=== PATIENT | female | born 1990 | race Caucasian/White ===

== ENCOUNTER 2020-06-13 09:27 | Emergency (ER) | payer OTHER, SELFPAY ==
--- NOTE | ~2020-06-13 | CT_ITS ---
EXAMINATION: CT HEAD WITHOUT CONTRAST CLINICAL INFORMATION: Left-sided numbness for 3 days COMPARISON: None TECHNIQUE: Contiguous axial imaging was performed from the skull base to vertex without intravenous administration of contrast. This CT examination was performed using dose optimization techniques as appropriate, variously including the following: *Automated exposure control *Adjustment of mA and/or kV according to patient size (this includes techniques or standardized protocols for targeted exams where dose is matched to indication/reason for exam; i.e. extremities or head) *Use of iterative reconstruction technique DLP: 622 mGy-cm FINDINGS: There is no evidence of acute intracranial hemorrhage or territorial infarction. No abnormal mass effect or midline shift is seen. Larson to white matter differentiation is well preserved. No extra-axial fluid collections are identified. The ventricles are normal in size. There is no abnormal attenuation within the brain parenchyma. The osseous structures and soft tissues are normal. The mastoid air cells and visualized portions of the paranasal sinuses are well aerated. CT/CT head/brain wo con IMPRESSION: No acute intracranial pathology.
[2020-06-13 09:54] VITALS: BP 151/98; PULSE 82; RESP 18; TEMP 37; O2SAT 99; BMI 51.2
--- NOTE | 2020-06-13 10:25 | ECG_ITS ---
Test Reason : WEAKNESS Blood Pressure : / mmHG Vent. Rate : 081 BPM Atrial Rate : 081 BPM P-R Int : 164 ms QRS Dur : 092 ms QT Int : 396 ms P-R-T Axes : 023 027 018 degrees QTc Int : 460 ms Normal sinus rhythm Possible Left atrial enlargement Cannot rule out Anterior infarct , age undetermined Abnormal ECG When compared with ECG of 15-NOV-2019 22:34, Nonspecific T wave abnormality now evident in Anterior leads Referred By: Miguel Hicks Electronically Signed By:CHINEDU LONGORIA MD
--- NOTE | 2020-06-13 10:26 | ED_ITS ---
HPI - General Adult General Chief complaint: Weakness Stated complaint: LEFT SIDED NUMBNESS Time Seen by Provider: 06/13/20 10:02 Source: patient Mode of arrival: ambulatory Limitations: no limitations History of Present Illness HPI narrative: 31-year-old female who presents emergency department for evaluation of left-sided numbness x3 days. The patient states that she does have migraine headaches. She states that however 6 days prior she did have headache but took Tylenol and ibuprofen and this resolved. Three days prior to coming to the emergency department she had gradual onset of numbness and tingling on the left side of her body. She states that the symptoms involve her face left arm and left leg. She states that the symptoms seem to wax and wane in intensity with different body parts being more intense at different times. She denied any weakness or pain in the areas of numbness. She denied headache, nausea, vomiting, shortness of breath, dyspnea on exertion abdominal pain. She denied change in her vision. She denied fatigue. She states she has been getting intermittent, mild, tightness and her left shoulder area. Patient states that she has had similar numbness the past but has never been this persisted. The patient does have a history of hypertension. She states that she ran out of her hydrochlorothiazide 25 mg once a day, 1/2 weeks prior and can ocular refill until she is seen by your PCP. Related Data Previous Rx's Medication Instructions Recorded hydrochlorothiazide 25 mg PO DAILY #30 tab 06/13/20 Allergies Allergy/AdvReac Type Severity Reaction Status Date / Time shellfish derived Allergy Severe THROAT Verified 06/13/20 11:01 [SHELLFISH DERIVED] SWELLING NUMBNESS amoxicillin [From AUGMENTIN] Allergy Intermediate CDIFF Verified 06/13/20 11:01 clavulanic acid Allergy Intermediate CDIFF Verified 06/13/20 11:01 [From AUGMENTIN] Review of Systems Review of Systems: Yes all other systems are reviewed and are negative Neurologic: Reports Abnormal speech present [facility] Past Medical History [facility] Narrative: Patient has a history of hypertension, GERD and migraines. The patient denies tobacco use, she states she occasionally drinks alcohol socially. She states that she occasionally smokes marijuana. She denies any other drug use. Medical History HTN (hypertension) Social History Social History Advance Directives: No Advance Directives Information Provided: Yes Physical Exam Vital Signs: Vital Signs: Last Vital Signs Temp 98.6 F 06/13/20 09:54 Pulse 85 06/13/20 11:13 Resp 18 06/13/20 09:54 BP 151/99 H 06/13/20 11:13 Pulse Ox 99 06/13/20 09:54 Body Mass Index 51.2 Const: General: cooperative Nutritional Appearance: overweight Orientation/consciousness: oriented to person and oriented to place Limitations: no limitations HENMT: Head: Yes normal to inspection, Yes normocephalic and Yes atraumatic Ears: external ears normal General nose exam: Normal external nose present Face and sinus: Yes normal facial exam Mouth: Normal oral and palatal mucosa present Throat: Yes posterior oropharynx normal Eyes: Periorbital: periorbital findings normal Eyelids: Yes eyelids normal Conjunctivae: conjunctivae normal Sclerae: sclerae normal Corneas: corneas normal Pupils: Equal, round and reactive pupils present Direct Ophthalmoscopy: normal light reflex Neck: Neck: Yes full ROM, Yes no lymphadenopathy, Yes no meningeal signs, Yes trachea midline and Yes supple Chest: Chest palpation & inspection: normal inspection of the chest and normal palpation of entire chest wall Resp: Effort & Inspection: normal respiratory effort and able to speak in complete sentences Auscultation: clear to auscultation bilaterally Cardio: Rate: regular rate Rhythm: regular rhythm Heart sounds: S1 normal heart sound present, S2 normal heart sound present and no murmurs GI: Inspection: Yes normal to inspection Palpation (GI): Soft to palpation, nontender, no guarding, not rigid and No hepatosplenomegaly present : General: Yes no CVA tenderness Back/Spine/Pelvis: Back: no CVA tenderness Cervical Spine: normal cervical lordosis Thoracic/Lumbar Spine: thoracic and lumbar spine normal to inspection Skin: Lesions: no lesions Rashes: no rashes Wounds: no wounds Neuro: General: oriented to person, oriented to place and no meningeal signs Cranial nerves: Yes CN's II-XII intact bilaterally and Yes Equal, round and reactive pupils present Cognition (Neuro): normal cognition Speech: Abnormal speech present Motor exam (neuro): 5/5 motor strength present t hroughout Sensory Exam: other (Slight diminished light touch in the L lower extremity compared to the R) Extrem: General: Yes normal to inspection and Yes full ROM Psych: Appearance: well kempt Mental Status: mental status grossly normal Speech and movement: Normal speech and movement present Affect: normal affect Attitude: cooperative Thought process: Normal thought process pres ent Thought content: Normal thought content present Course Course Course Narrative: 30-year-old female with history of hypertension, migraine headaches, GERD who presents emergency department for evaluation 3 days of left- sided numbness. The numbness was proceeded by her usual migraine headaches. The patient's physical examination did reveal some diminished light touch in the left lower extremity as compared to the right otherwise her exam was unremarkable. Differential includes but not limited to stroke, MS, migraine syndrome, anxiety, metabolic abnormalities. I did order laboratory evaluation and CT scan of patient's head. I will treat the patient as if this is a migr lianna syndrome with Toradol 30 mg IV, Reglan 10 mg IV and Benadryl 50 mg IV. I also ordered normal saline IV x1 L. 1250: The patient states that her numbness has improved slightly but has not resolved completely. She states she is feeling better and would like to go home. The patient's laboratory evaluation was unremarkable. CT scan without IV contrast was unremarkable as well. I did tell the patient that I suspect that her numbness is part of her migraine syndrome however it persists that she should follow-up with neurology for further evaluation. Medical Decision Making Lab Data Result diagrams: 06/13/20 10:46 06/13/20 10:46 Labs: Lab Results 06/13/20 06/13/20 06/13/20 Range/Units 10:46 10:46 10:47 WBC 8.5 (4.8-10.8) X10*3/uL RBC 4.97 (4.20-5.50) X10*6/uL Hgb 13.8 (12.0-16.0) g/dl Hct 42.8 (37-47) % MCV 86.1 (80-98) fL MCH 27.8 (27.0-33.0) pg MCHC 32.2 (31.0-35.0) g/dl RDW 13.1 (11.0-16.0) % Plt Count 308 (160-400) X10*3/uL MPV 10.7 (9.4-12.3) fL Immature Gran % (Auto) 0.2 (0.0-0.4) % Neut % (Auto) 56.8 (45-73) % Lymph % (Auto) 35.3 (20-40) % Otoe % (Auto) 5.9 (2-11) % Eos % (Auto) 1.1 (0-4) % Baso % (Auto) 0.7 (0-2) % Lymph # (Auto) 3.0 (1.2-4.9) X10*3/uL Otoe # (Auto) 0.5 (0.1-1.2) X10*3/uL Eos # (Auto) 0.1 (0.0-0.4) X10*3/uL Baso # (Auto) 0.1 (0.0-0.2) X10*3/uL Abs Immat Gran (auto) 0.02 (0.00-0.03) X10*3/uL Absolute Neuts (auto) 4.8 (2.0-8.3) X10*3/uL Absolute Nucleated RBC 0.000 (0.0-0.012) X10*3/uL Nucleated RBC % (auto) 0.0 (0.0-0.2) /100WBC Sodium 137 (135-145) mmol/L Potassium 4.1 (3.3-5.1) mmol/L Chloride 103 (96-108) mmol/L Carbon Dioxide 25 (22-29) mmol/L Anion Gap 13 (12-20) BUN 9 (9-16) mg/dL Creatinine 0.81 (0.5-1.4) mg/dL Estim Creat Clear Calc 109.6 Estimated GFR > 60 Random Glucose 89 (60-115) mg/dL Calcium 8.9 (8.4-10.2) mg/dL Total Bilirubin 0.6 (0.0-1.0) mg/dL AST 20 (5-31) U/L ALT 21 (0-31) U/L Alkaline Phosphatase 128 H (39-117) U/L Total Protein 7.4 (6.5-8.0) g/dL Albumin 3.8 (3.5-5.0) g/dL Lipase 27 (8-78) U/L Urine Test NEGATIVE (NEGATIVE) ECG Data Attestation: I personally reviewed and interpreted this ECG as follows: Interpretation: 1040: Normal sinus rhythm with rate of 81, normal NV, QRS and QTC intervals, inverted T-wave in lead 3 and V1, no ST segment elevation, no ST segment depression, this is a normal EKG. Discharge Plan Discharge Clinical Impression: Numbness and tingling Patient Disposition: Home, Self-Care Instructions: Paresthesia (ED) Additional Instructions: Your blood work was unremarkable. Your EKG was normal. This CT scan of your head without IV contrast revealed no evidence of a stroke at this time which is reassuring. I suspect that your symptoms are related to her migraine syndrome. If your symptoms get worse or do not improve then you should follow-up with our neurologist for re-evaluation. Restart your hydrochlorothiazide today and follow-up with your doctor for re- evaluation further treatment of your hypertension/high blood pressure Prescriptions: New hydrochlorothiazide 25 mg tablet 25 mg PO DAILY Qty: 30 RF: 0 Referrals: Law Freeman MD [Physician] - 1 week (Left-sided numbness and tingling, history of migraine, CT negative, labs normal)
[2020-06-13] MEDS: Metoclopramide HCl 10 MG/2 ML VIAL IVPUSH (11:01)
[2020-06-13] MEDS: diphenhydrAMINE HCL 50 MG/ML VIAL IVPUSH (11:01)
[2020-06-13 11:02] LABS: Urine Pregnancy NEGATIVE (NEGATIVE)
[2020-06-13] MEDS: Ketorolac Tromethamine 30 MG/ML VIAL IVPUSH (11:02)
[2020-06-13 11:03] LABS: UPreg QC Valid YES
[2020-06-13 11:03] LABS: Basophils Absolute Auto 0.1 X10*3/uL (0.0-0.2); Basophils Percent Auto 0.7 % (0-2); Eosinophils Absolute Auto 0.1 X10*3/uL (0.0-0.4); Eosinophils Percent Auto 1.1 % (0-4); Hematocrit 42.8 % (37-47); Hemoglobin 13.8 g/dl (12.0-16.0); Imm Gran Abs Auto 0.02 X10*3/uL (0.00-0.03); Imm Gran Pct Auto 0.2 % (0.0-0.4); Lymphocytes Percent Auto 35.3 % (20-40); Mean Corpuscular HGB Conc 32.2 g/dl (31.0-35.0); Mean Corpuscular Hemoglobin 27.8 pg (27.0-33.0); Mean Corpuscular Volume 86.1 fL (80-98); Mean Platelet Volume 10.7 fL (9.4-12.3); Monocytes Absolute Auto 0.5 X10*3/uL (0.1-1.2); Monocytes Percent Auto 5.9 % (2-11); Neutrophils Absolute Auto 4.8 X10*3/uL (2.0-8.3); Neutrophils Percent Auto 56.8 % (45-73); Platelet Count 308 X10*3/uL (160-400); Red Blood Count 4.97 X10*6/uL (4.20-5.50); Red Cell Distribution Width 13.1 % (11.0-16.0); White Blood Count 8.5 X10*3/uL (4.8-10.8)
[2020-06-13] MEDS: 0.9 % Sodium Chloride 1,000 ML 999 ML IV (11:03)
[2020-06-13 11:13] VITALS: BP 151/99; PULSE 85
--- NOTE | 2020-06-13 11:17 | PC.NURSE ---
Pt felt dizzy after benedryl admin. BP and HR assessed with no changes. Pt placed on monitor. Dizziness is subsuding.
[2020-06-13 11:39] LABS: Alanine Aminotransferase 21 U/L (0-31); Albumin Level 3.8 g/dL (3.5-5.0); Alkaline Phosphatase 128 U/L (39-117); Anion Gap 13 (12-20); Aspartate Amino Transferase 20 U/L (5-31); Bilirubin Total 0.6 mg/dL (0.0-1.0); Blood Urea Nitrogen 9 mg/dL (9-16); Calcium 8.9 mg/dL (8.4-10.2); Carbon Dioxide 25 mmol/L (22-29); Chloride 103 mmol/L (96-108); Creatinine Clr Calc Pharmacy 109.6; Estimated Glomerular Filt Rate > 60; Glucose Random 89 mg/dL (60-115); Lipase 27 U/L (8-78); Potassium 4.1 mmol/L (3.3-5.1); Sodium 137 mmol/L (135-145); Total Protein 7.4 g/dL (6.5-8.0)
== END 2020-06-13 13:09 | disposition home or self-care (01) ==
PROVIDERS: Emergency Provider Emergency Medicine Emergency Medical Services; PCP Internal Medicine
DX: G43.909 Migraine, unspecified, not intractable, without status migrainosus (principal); R20.0 Anesthesia of skin; Z79.899 Other long term (current) drug therapy
CPT/HCPCS: 36415; 70450; 80053; 81025; 83690; 85025; 93005; 96361; 96374; 96375; 99283; 99284; J1200; J1885; J2765

== ENCOUNTER 2020-09-09 11:53 | Emergency (ER) | payer OTHER, SELFPAY ==
--- NOTE | ~2020-09-09 | CT_ITS ---
EXAMINATION: CT HEAD WITHOUT CONTRAST CLINICAL INFORMATION: Dizziness. COMPARISON: None TECHNIQUE: Contiguous axial imaging was performed from the skull base to vertex without intravenous administration of contrast. This CT examination was performed using dose optimization techniques as appropriate, variously including the following: *Automated exposure control *Adjustment of mA and/or kV according to patient size (this includes techniques or standardized protocols for targeted exams where dose is matched to indication/reason for exam; i.e. extremities or head) *Use of iterative reconstruction technique DLP: 625 mGy-cm FINDINGS: There is no evidence of acute intracranial hemorrhage or territorial infarction. No abnormal mass effect or midline shift is seen. Larson to white matter differentiation is well preserved. No extra-axial fluid collections are identified. The ventricles are normal in size. There is no abnormal attenuation within the brain parenchyma. The osseous structures and soft tissues are normal. The mastoid air cells and visualized portions of the paranasal sinuses are well aerated. CT/CT head/brain wo con IMPRESSION: No acute intracranial process seen.
--- NOTE | ~2020-09-09 | XR_ITS ---
EXAMINATION: XR CHEST CLINICAL INFORMATION: Pneumonia COMPARISON: None TECHNIQUE: Frontal view of the chest was obtained. FINDINGS: No significant abnormality is noted involving the heart, lungs, mediastinum, bony thorax or soft tissues. XR/XR chest 1V IMPRESSION: Unremarkable examination.
[2020-09-09 12:05] VITALS: BP 156/114; PULSE 78; RESP 20; TEMP 36.4; O2SAT 99; BMI 52.2
--- NOTE | 2020-09-09 12:35 | ECG_ITS ---
Test Reason : ARRHYTHRMIA Blood Pressure : / mmHG Vent. Rate : 065 BPM Atrial Rate : 065 BPM P-R Int : 166 ms QRS Dur : 096 ms QT Int : 424 ms P-R-T Axes : 018 019 007 degrees QTc Int : 440 ms Normal sinus rhythm Normal ECG When compared with ECG of 13-JUN-2020 10:40, No significant change was found Referred By: Day Maria Electronically Signed By:CHINEDU LONGORIA MD
--- NOTE | 2020-09-09 13:36 | ED_ITS ---
HPI - General Adult General Chief complaint: Arrhythmia/Palpitations Stated complaint: dizziness, reaction to med? Time Seen by Provider: 09/09/20 12:34 Source: patient Mode of arrival: ambulatory Limitations: no limitations History of Present Illness HPI narrative: Patient presents to the ED of dizziness described as the room spinning and also having palpitations. Patient states dizziness when changing position of head and nausea. Patient states symptoms may be attributed to new medication losartan she took for the 1st time last night. Patient denies any head trauma, chest pain, shortness of breath. Patient states no fever or chills. Patient denies any headache or neck stiffness Related Data Home Medications Medication Instructions Recorded Confirmed amlodipine 2.5 mg tablet 2.5 mg PO DAILY 09/03/20 09/03/20 cetirizine 10 mg capsule 10 mg PO DAILY PRN 09/03/20 09/03/20 epinephrine 0.3 mg/0.3 mL 1 IM DIRECTED 09/03/20 09/03/20 injection, auto-injector ergocalciferol (vitamin D2) 1,250 1,250 mcg PO QWEEK 09/03/20 09/03/20 mcg (50,000 unit) capsule sumatriptan succinate 100 mg tablet mg PO 09/03/20 09/03/20 Previous Rx's Medication Instructions Recorded hydrochlorothiazide 25 mg PO DAILY #30 tab 06/13/20 azithromycin 500 mg tablet 500 mg PO DAILY 5 Days #5 tab 09/03/20 prednisone 50 mg tablet 50 mg PO DAILY 5 Days #5 tab 09/03/20 meclizine 25 mg PO TID PRN #30 tab 09/09/20 Allergies Allergy/AdvReac Type Severity Reaction Status Date / Time shellfish derived Allergy Severe THROAT Verified 09/03/20 16:14 [SHELLFISH DERIVED] SWELLING NUMBNESS amoxicillin [From AUGMENTIN] Allergy Intermediate CDIFF Verified 09/03/20 16:14 clavulanic acid Allergy Intermediate CDIFF Verified 09/03/20 16:14 [From AUGMENTIN] Review of Systems Review of Systems: Yes all other systems are reviewed and are negative Constitutional: Constitutional: Reports as per HPI and Reports no additional constitutional complaints Eyes: Eyes: Reports as per HPI and Reports no additional eye complaints ENT: Reports system reviewed and no additional complaints, except as documented, Reports as per HPI, Reports vertigo and Reports dizziness Cardiovascular: Cardiovascular: Reports as per HPI and Reports no additional cardiovascular complaints Comments: Palpitation Respiratory: Respiratory: Reports as per HPI and Reports no additional respiratory complaints Gastrointestinal: Gastrointestinal: Reports as per HPI and Reports no additional gastrointestinal complaints Musculoskeletal: Musculoskeletal: Reports no additional musculoskeletal complaints and Reports as per HPI Neurologic: Reports system reviewed and no additional complaints, except as documented, Reports as per HPI, Reports vertigo and Reports dizziness PMFSH Past Medical History Medical History HTN (hypertension) Social History Social History Smoking Status: Former smoker Use of substances other than those prescribed or required for medical reasons: No Advance Directives: No Advance Directives Information Provided: No Patient : No Physical Exam Vital Signs: Vital Signs: Last Vital Signs Temp 97.6 F 09/09/20 12:05 Pulse 91 09/09/20 16:19 Resp 14 09/09/20 15:11 BP 154/95 H 09/09/20 16:19 Pulse Ox 100 09/09/20 15:11 Body Mass Index 52.2 Const: General: cooperative, healthy appearing, comfortable, no acute distress, well developed, alert, awake and Physically active Orientation/consciousness: patient oriented x3 HENMT: Head: Yes normal to inspection, Yes No palpable skull fracture present, Yes normocephalic, Yes atraumatic and No abrasion Eyes: Other: Positive for horizontal nystagmus to the left and says she is feeling of dizziness. General: appearance normal, both eyes and all related structures Neck: Neck: Yes normal visual inspection, Yes full ROM, Yes no lymphade nopathy, Yes no meningeal signs, Yes trachea midline, Yes supple and No tender Chest: Chest palpation & inspection: normal inspection of the chest and normal palpation of entire chest wall Resp: Effort & Inspection: normal respiratory effort and able to speak in complete sentences Auscultation: clear to auscultation bilaterally Cardio: Jugular venous distension: no JVD Heart sounds: S1 normal heart sound present and S2 normal heart sound present GI: Inspection: Yes normal to inspection Palpation (GI): Soft to palpation, not firm, nontender, no guarding and not rigid : General: No CVA tenderness and Yes no CVA tenderness Back/Spine/Pelvis: Back: no CVA tenderness, No CVA tenderness and No back tenderness Skin: General skin exam: no rashes or lesions noted and elasticity normal Neuro: Other: Negative slurred speech. Negative facial droop. All ex tremities strength intact in 5+. Negative pronator drif. negative rhomberg. finger to nose and rapid hand movement is intact. General: patient oriented x3, gait normal, no meningeal signs and CN's II-XI intact bilaterally Cranial nerves: Yes CN's II-XII intact bilaterally Extrem: General: Yes normal to inspection and Yes full ROM Psych: Appearance: grossly normal, well kempt and not disheveled Course Course Course Narrative: Sound like benign positional vertigo but due to palpitation will do basic labs including D-dimer, troponin, TSH, and EKG. Will send patient for head CT Reevaluation(s) Reevaluation #1: Patient's orthostatics negative. Patient's EKG negative STEMI. Troponins negative. D-dimer negative. Negative for . Chest x-ray negative for pneumonia. Patient's TSH level came back normal. Awaiting for head CT scan results. Patient states she feel better. Patient able to ambulate to the bathroom on her own without falling. Patient has steady gait. Orthos tatics are normal. Reevaluation #2: Patient head CT scan came back normal. A re-evaluated patient and she states she feels better. Once again patient states she only feel dizzy on change of position of head which most likely indicate vertigo. I evaluated patient's both ears and they were negative for otitis media/externa/tympanic perforation. Up to date states Losartan can cause dizziness and palpitations. Patient informed to call her PCP in regards to accessing if she should stop taking losartan and. I believe symptoms are due to vertigo due to patient stating sensation of dizziness when room spinning and horizontal nystagmus on evaluation. Medical Decision Making MDM Narrative Medical decision making narrative: Vertical Lab Data Result diagrams: 09/09/20 13:47 09/09/20 14:37 Labs: Lab Results 09/09/20 09/09/20 09/09/20 Range/Units 13:47 13:47 13:47 WBC 15.6 H (4.8-10.8) X10*3/uL RBC 5.06 (4.20-5.50) X10*6/uL Hgb 14.3 (12.0-16.0) g/dl Hct 43.1 (37-47) % MCV 85.2 (80-98) fL MCH 28.3 (27.0-33.0) pg MCHC 33.2 (31.0-35.0) g/dl RDW 13.8 (11.0-16.0) % Plt Count 361 (160-400) X10*3/uL MPV 10.8 (9.4-12.3) fL Immature Gran % (Auto) 0.9 H (0.0-0.4) % Neut % (Auto) 54.6 (45-73) % Lymph % (Auto) 37.6 (20-40) % [place] % (Auto) 5.4 (2-11) % Eos % (Auto) 0.9 (0-4) % Baso % (Auto) 0.6 (0-2) % Lymph # (Auto) 5.9 H (1.2-4.9) X10*3/uL [place] # (Auto) 0.8 (0.1-1.2) X10*3/uL Eos # (Auto) 0.1 (0.0-0.4) X10*3/uL Baso # (Auto) 0.1 (0.0-0.2) X10*3/uL Abs Immat Gran (auto) 0.14 H (0.00-0.03) X10*3/uL Absolute Neuts (auto) 8.5 H (2.0-8.3) X10*3/uL Absolute Nucleated RBC 0.000 (0.0-0.012) X10*3/uL Nucleated RBC % (auto) 0.0 (0.0-0.2) /100WBC Smear Tech's Comments VERIFIED PT (10.8-13.0) SEC INR (0.9-1.1) APTT (24.1-38.0) SEC D-Dimer NG/ML Hold Blue Top SEE NOTE Sodium (135-145) mmol/L Potassium (3.3-5.1) mmol/L Chloride (96-108) mmol/L Carbon Dioxide (22-29) mmol/L Anion Gap (12-20) BUN (9-16) mg/dL Creatinine (0.5-1.4) mg/dL Estim Creat Clear Calc Estimated GFR Random Glucose (60-115) mg/dL Calcium (8.4-10.2) mg/dL Magnesium (1.6-2.6) mg/dL Total Bilirubin Cancelled Direct Bilirubin Cancelled AST Cancelled ALT Cancelled Alkaline Phosphatase Cancelled Troponin I High Sens (<3.5-17.0) ng/L Total Protein Cancelled Albumin Cancelled TSH (0.32-4.0) uIU/mL Beta HCG, Quant mIU/mL Urine Color Urine Appearance Urine pH (5.0-8.0) Ur Specific Central (1.005-1.025) Urine Protein (NEG-TRACE) MG/DL Urine Glucose (UA) (NEG) MG/DL Urine Ketones (NEG) MG/DL Urine Blood (NEG) Urine Nitrite (NEG) Ur Leukocyte Esterase (NEG) Urine RBC (0) /HPF Urine WBC (0-4) /HPF Ur Squamous Epith Cells /LPF Urine Bacteria /LPF Urine Test (NEGATIVE) 09/09/20 09/09/20 09/09/20 Range/Units 13:47 13:47 14:37 WBC (4.8-10.8) X10*3/uL RBC (4.20-5.50) X10*6/uL Hgb (12.0-16.0) g/dl Hct (37-47) % MCV (80-98) fL MCH (27.0-33.0) pg MCHC (31.0-35.0) g/dl RDW (11.0-16.0) % Plt Count (160-400) X10*3/uL MPV (9.4-12.3) fL Immature Gran % (Auto) (0.0-0.4) % Neut % (Auto) (45-73) % Lymph % (Auto) (20-40) % [place] % (Auto) (2-11) % Eos % (Auto) (0-4) % Baso % (Auto) (0-2) % Lymph # (Auto) (1.2-4.9) X10*3/uL [place] # (Auto) (0.1-1.2) X10*3/uL Eos # (Auto) (0.0-0.4) X10*3/uL Baso # (Auto) (0.0-0.2) X10*3/uL Abs Immat Gran (auto) (0.00-0.03) X10*3/uL Absolute Neuts (auto) (2.0-8.3) X10*3/uL Absolute Nucleated RBC (0.0-0.012) X10*3/uL Nucleated RBC % (auto) (0.0-0.2) /100WBC Smear Tech's Comments PT 12.0 (10.8-13.0) SEC INR 1.0 (0.9-1.1) APTT 31.0 (24.1-38.0) SEC D-Dimer < 200 NG/ML Hold Blue Top Sodium 136 (135-145) mmol/L Potassium 3.0 L D (3.3-5.1) mmol/L Chloride 100 (96-108) mmol/L Carbon Dioxide 29 (22-29) mmol/L Anion Gap 10 L (12-20) BUN 15 D (9-16) mg/dL Creatinine 0.81 (0.5-1.4) mg/dL Estim Creat Clear Calc 111.0 Estimated GFR > 60 Random Glucose 85 (60-115) mg/dL Calcium 8.8 (8.4-10.2) mg/dL Magnesium 2.3 (1.6-2.6) mg/dL Total Bilirubin 0.6 Direct Bilirubin 0.3 AST 15 ALT 17 Alkaline Phosphatase 113 Troponin I High Sens < 3.5 (<3.5-17.0) ng/L Total Protein 7.0 Albumin 3.7 TSH 2.54 (0.32-4.0) uIU/mL Beta HCG, Quant < 2 mIU/mL Urine Color Urine Appearance Urine pH (5.0-8.0) Ur Specific Central (1.005-1.025) Urine Protein (NEG-TRACE) MG/DL Urine Glucose (UA) (NEG) MG/DL Urine Ketones (NEG) MG/DL Urine Blood (NEG) Urine Nitrite (NEG) Ur Leukocyte Esterase (NEG) Urine RBC (0) /HPF Urine WBC (0-4) /HPF Ur Squamous Epith Cells /LPF Urine Bacteria /LPF Urine Test (NEGATIVE) 05/13/21 05/13/21 Range/Units 15:12 15:12 WBC (4.8-10.8) X10*3/uL RBC (4.20-5.50) X10*6/uL Hgb (12.0-16.0) g/dl Hct (37-47) % MCV (80-98) fL MCH (27.0-33.0) pg MCHC (31.0-35.0) g/dl RDW (11.0-16.0) % Plt Count (160-400) X10*3/uL MPV (9.4-12.3) fL Immature Gran % (Auto) (0.0-0.4) % Neut % (Auto) (45-73) % Lymph % (Auto) (20-40) % [place] % (Auto) (2-11) % Eos % (Auto) (0-4) % Baso % (Auto) (0-2) % Lymph # (Auto) (1.2-4.9) X10*3/uL [place] # (Auto) (0.1-1.2) X10*3/uL Eos # (Auto) (0.0-0.4) X10*3/uL Baso # (Auto) (0.0-0.2) X10*3/uL Abs Immat Gran (auto) (0.00-0.03) X10*3/uL Absolute Neuts (auto) (2.0-8.3) X10*3/uL Absolute Nucleated RBC (0.0-0.012) X10*3/uL Nucleated RBC % (auto) (0.0-0.2) /100WBC Smear Tech's Comments PT (10.8-13.0) SEC INR (0.9-1.1) APTT (24.1-38.0) SEC D-Dimer NG/ML Hold Blue Top Sodium (135-145) mmol/L Potassium (3.3-5.1) mmol/L Chloride (96-108) mmol/L Carbon Dioxide (22-29) mmol/L Anion Gap (12-20) BUN (9-16) mg/dL Creatinine (0.5-1.4) mg/dL Estim Creat Clear Calc Estimated GFR Random Glucose (60-115) mg/dL Calcium (8.4-10.2) mg/dL Magnesium (1.6-2.6) mg/dL Total Bilirubin Direct Bilirubin AST ALT Alkaline Phosphatase Troponin I High Sens (<3.5-17.0) ng/L Total Protein Albumin TSH (0.32-4.0) uIU/mL Beta HCG, Quant mIU/mL Urine Color YELLOW Urine Appearance CLEAR Urine pH 7.0 (5.0-8.0) Ur Specific Central 1.015 (1.005-1.025) Urine Protein NEG (NEG-TRACE) MG/DL Urine Glucose (UA) NEG (NEG) MG/DL Urine Ketones NEG (NEG) MG/DL Urine Blood TRACE (NEG) Urine Nitrite NEG (NEG) Ur Leukocyte Esterase NEG (NEG) Urine RBC 0-2 (0) /HPF Urine WBC 0-2 (0-4) /HPF Ur Squamous Epith Cells TRACE /LPF Urine Bacteria TRACE /LPF Urine Test NEGATIVE (NEGATIVE) ECG Data Interpretation: Normal sinus rhythm. Normal EKG. Ventricular rate 65. Pr interval 166. QRS duration 96. QTC 440. Negative STEMI Discharge Plan Discharge Clinical Impression: Vertigo, Palpitations Patient Disposition: Home, Self-Care Instructions: Heart Palpitations (ED), Vertigo (ED) Additional Instructions: Return to the ED immediately for any headache, slurred speech, loss of vision, paralysis of extremities, nausea, vomiting, inability to walk, worsening dizziness, or any other concerning symptoms. Inform your PCP tomorrow in regards to the losartan ( new medication) possibly causing symptoms of pa lpitation and dizziness as this was your compliant, but history physical exam indicates more vertigo. EKG came back normal. Head CT scan came back negative for any stroke or bleed. He had elevated white blood cell count, but chest x- ray and UA came back negative for signs of infection. Prescriptions: New meclizine 25 mg tablet 25 mg PO TID PRN (Reason: dizziness) Qty: 30 RF: 0 No Action hydrochlorothiazide 25 mg tablet 25 mg PO DAILY Qty: 30 RF: 0 amlodipine 2.5 mg tablet 2.5 mg PO DAILY RF: 0 sumatriptan succinate 100 mg tablet PO RF: 0 Zyrtec 10 mg capsule 10 mg PO DAILY PRNRF: 0 ergocalciferol (vitamin D2) 1,250 mcg (50,000 unit) capsule 1,250 mcg PO QWEEK RF: 0 epinephrine 0.3 mg/0.3 mL auto-injector 1 IM DIRECTED RF: 0 azithromycin 500 mg tablet 500 mg PO DAILY 5 Days Qty: 5 RF: 0 prednisone 50 mg tablet 50 mg PO DAILY 5 Days Qty: 5 RF: 0 Referrals: Nicholas Cooper MD [Primary Care Provider] - 2 days (Vertigo) Stand Alone Forms: Work/School Release Interventions: ED Discharge Assessment Last Done: 09/09/20 17:53 Discharge Date/Time: 09/09/20 17:56 Print Language: [place]
[2020-09-09] MEDS: Meclizine HCl 25 MG TABLET 50 MG PO (13:49)
[2020-09-09] MEDS: 0.9 % Sodium Chloride 1,000 ML 999 ML IV (13:50)
[2020-09-09 13:55] LABS: Basophils Absolute Auto 0.1 X10*3/uL (0.0-0.2); Basophils Percent Auto 0.6 % (0-2); Eosinophils Absolute Auto 0.1 X10*3/uL (0.0-0.4); Eosinophils Percent Auto 0.9 % (0-4); Hematocrit 43.1 % (37-47); Hemoglobin 14.3 g/dl (12.0-16.0); Imm Gran Abs Auto 0.14 X10*3/uL (0.00-0.03); Imm Gran Pct Auto 0.9 % (0.0-0.4); Lymphocytes Absolute Auto 5.9 X10*3/uL (1.2-4.9); Lymphocytes Percent Auto 37.6 % (20-40); MANUAL DIFF FLAG SCAN; Mean Corpuscular HGB Conc 33.2 g/dl (31.0-35.0); Mean Corpuscular Hemoglobin 28.3 pg (27.0-33.0); Mean Corpuscular Volume 85.2 fL (80-98); Mean Platelet Volume 10.8 fL (9.4-12.3); Monocytes Absolute Auto 0.8 X10*3/uL (0.1-1.2); Monocytes Percent Auto 5.4 % (2-11); Neutrophils Absolute Auto 8.5 X10*3/uL (2.0-8.3); Neutrophils Percent Auto 54.6 % (45-73); Platelet Count 361 X10*3/uL (160-400); Red Blood Count 5.06 X10*6/uL (4.20-5.50); Red Cell Distribution Width 13.8 % (11.0-16.0); SCAN SMEAR FLAG 1; White Blood Count 15.6 X10*3/uL (4.8-10.8)
[2020-09-09 14:08] LABS: D Dimer < 200 NG/ML
[2020-09-09 14:17] LABS: SLIDE REVIEW VERIFIED
[2020-09-09 14:28] LABS: Troponin-I High Sensitivity < 3.5 ng/L (<3.5-17.0)
[2020-09-09 14:35] VITALS: PULSE 78
[2020-09-09 15:11] VITALS: BP 141/87; PULSE 74; RESP 14; O2SAT 100
[2020-09-09 15:19] LABS: Alanine Aminotransferase 17 U/L (0-31); Albumin Level 3.7 g/dL (3.5-5.0); Alkaline Phosphatase 113 U/L (39-117); Anion Gap 10 (12-20); Aspartate Amino Transferase 15 U/L (5-31); Bilirubin Direct 0.3 mg/dL (0.0-0.5); Bilirubin Total 0.6 mg/dL (0.0-1.0); Blood Urea Nitrogen 15 mg/dL (9-16); Calcium 8.8 mg/dL (8.4-10.2); Carbon Dioxide 29 mmol/L (22-29); Chloride 100 mmol/L (96-108); Estimated Glomerular Filt Rate > 60; Glucose Random 85 mg/dL (60-115); Magnesium 2.3 mg/dL (1.6-2.6); Sodium 136 mmol/L (135-145)
[2020-09-09 15:35] LABS: Glucose Urine UA NEG (NEG); Leukocyte Esterase Urine NEG (NEG); Nitrite Urine NEG (NEG); Specific Gravity - Urine 1.015 (1.005-1.025); Urine Blood TRACE (NEG); Urine Ketones NEG (NEG); Urine Protein NEG (NEG-TRACE)
[2020-09-09 15:37] LABS: Appearance Urine CLEAR; Color Urine YELLOW; UPreg QC Valid YES; Urine Pregnancy NEGATIVE (NEGATIVE)
[2020-09-09] MEDS: Potassium Chloride Packet 20 MEQ PACKET 40 MEQ PO (15:39)
[2020-09-09 15:41] LABS: TSH reflex Free T4 2.54 uIU/mL (0.32-4.0)
[2020-09-09 15:58] LABS: HCG Quantitative < 2 mIU/mL
[2020-09-09 15:59] LABS: Bacteria Urine TRACE /LPF; RBC Urine 0-2 /HPF (0); Squamous Epithelial Cell Urine TRACE /LPF; WBC Urine 0-2 /HPF (0-4)
[2020-09-09 16:19] VITALS: BP 133/93; BP 134/86; BP 154/95; PULSE 73; PULSE 83; PULSE 91
== END 2020-09-09 17:56 | disposition home or self-care (01) ==
PROVIDERS: Physician Assistant; Emergency Provider Emergency Medicine; PCP Internal Medicine
DX: R42 Dizziness and giddiness (principal); R00.2 Palpitations; I10 Essential (primary) hypertension; Z87.891 Personal history of nicotine dependence
CPT/HCPCS: 36415; 70450; 71045; 80048; 80076; 81001; 81025; 83735; 84443; 84484; 84702; 85025; 85379; 85610; 85730; 93005; 96360; 99284; 99285

== ENCOUNTER 2023-04-03 20:34 | Emergency (ER) | payer OTHER, SELFPAY ==
--- NOTE | ~2023-04-03 | XR_ITS ---
EXAMINATION: XR CHEST CLINICAL INFORMATION: Chest pain. Covid infection. COMPARISON: Previous chest x-ray August 2020 TECHNIQUE: 2 views of the chest were obtained. FINDINGS: The cardiac silhouette does not appear enlarged. There are increased left perihilar markings questionable for an infiltrate. The lungs are otherwise clear. No pleural effusion or pneumothorax. Bony structures are unremarkable. XR/XR chest 2V IMPRESSION: Question left perihilar infiltrate.
[2023-04-03 20:52] VITALS: BP 160/115; PULSE 116; RESP 20; TEMP 37.4; O2SAT 100; BMI 54.4
--- NOTE | 2023-04-03 20:52 | ED_ITS ---
HPI - General Adult General Chief complaint: Upper Respiratory Symptoms Stated complaint: CHEST IS TIGHT/COVID+ Time Seen by Provider: 04/03/23 22:38 Source: patient Mode of arrival: ambulatory History of Present Illness HPI narrative: 32-year-old female without significant past medical history who presents with having a positive COVID-19 home test and she thinks she may have caught it from her sister. Patient states her symptoms started yesterday and she describes ear pain, back pain, chest discomfort, shortness of breath, body aches and subjective fevers. Related Data Home Medications Medication Instructions Recorded Confirmed amlodipine 2.5 mg tablet 2.5 mg PO DAILY 09/03/20 09/03/20 cetirizine 10 mg capsule (Zyrtec) 10 mg PO DAILY PRN 09/03/20 09/03/20 epinephrine 0.3 mg/0.3 mL 1 IM DIRECTED allergies 09/03/20 09/03/20 injection, auto-injector ergocalciferol (vitamin D2) 1,250 1,250 mcg PO QWEEK 09/03/20 09/03/20 mcg (50,000 unit) capsule sumatriptan succinate 100 mg tablet mg PO 09/03/20 09/03/20 losartan 50 mg tablet 50 mg PO QPM 08/01/21 omeprazole 20 mg capsule,delayed 20 mg PO DAILY 08/01/21 release Previous Rx's Medication Instructions Recorded hydrochlorothiazide 25 mg tablet 25 mg PO DAILY #30 tabs 06/13/20 prednisone 50 mg tablet 50 mg PO DAILY 5 days #5 tabs 09/03/20 meclizine 25 mg tablet 25 mg PO TID PRN dizziness #30 tabs 09/09/20 azithromycin 500 mg tablet 500 mg PO DAILY 5 days #5 tabs 11/03/20 dexamethasone 6 mg tablet 6 mg PO DAILY 3 days #3 tabs 11/03/20 ciprofloxacin HCl 250 mg tablet 250 mg PO BID #14 tabs 08/01/21 pantoprazole 40 mg tablet,delayed 40 mg PO DAILY #14 tabs 08/01/21 release Allergies Allergy/AdvReac Type Severity Reaction Status Date / Time shellfish derived Allergy Severe THROAT Verified 08/01/21 13:10 [SHELLFISH DERIVED] SWELLING NUMBNESS amoxicillin [From AUGMENTIN] Allergy Intermediate CDIFF Verified 08/01/21 13:10 clavulanic acid Allergy Intermediate CDIFF Verified 08/01/21 13:10 [From AUGMENTIN] Review of Systems 2 Review of Systems: Pertinent positives and negatives as stated in HPI PMFSH Past Medical History Source: nursing notes reviewed Medical History HTN (hypertension) Social History Social History Advance Directives: No Advance Directives Information Provided: No Physical Exam ED Vital Signs: Vital Signs - 24 hr 04/03/23 20:52 Temperature 99.3 F Pulse Rate 116 H Respiratory Rate 20 Blood Pressure 160/115 H Pulse Oximetry 100 Oxygen Delivery Method Room Air BMI result Body Mass Index 54.4 VITAL SIGNS: Reviewed. GENERAL: Elevated BMI, Well developed, well nourished, in no acute distress. HEAD: Normocephalic/atraumatic EYES: PERRLA, EOMI EARS: Ext canals without abnormality, TMs non-bulging and non-erythematous NOSE: Nares patent bilateral OROPHARYNX: no oral lesions noted, posterior pharynx clear and non-erythematous without noted tonsillar enlargement/erythema/exudates NECK: Supple, no adenopathy LUNGS: Normal breath sounds, No adventitious sounds or accessory muscle use, no tachypnea. SpO2<100> CARDIOVASCULAR: Regular rate and rhythm without noted murmurs ABDOMEN: Soft, non-tender, non-distended with bowel sounds. MUSCULOSKELETAL: No tenderness, deformities, or effusions noted on gross inspection. EXTREMITIES: No cyanosis, clubbing or edema. SKIN: Inspection of the skin reveals no rashes NEUROLOGIC: Alert and oriented x 4. Strength and sensation to light touch were grossly intact x 4. Course Course Course Narrative: This is a rapid medical exam: Additional HPI, ROS, PE not included below will be deferred to primary provider. Patient is a 32-year-old female Covid + yesterday hx of HTN presenting to the ED with complaint of shortness of breath and chest pain and tightness. Rates at 7/10 with coughing/sneezing. Patient mildly tachycardic in triage, BP elevated. States she started Paxlovid this morning. Sweats this morning but has not checked temp, Plan: EKG, CXR, basic labs Medications Administered Discontinued Medications Generic Name Dose Route Start Last Admin Trade Name Freq PRN Reason Stop Dose Admin Acetaminophen 975 mg 04/03/23 23:35 04/03/23 23:57 Acetaminophen 325 Mg Tablet PO 04/03/23 23:36 975 mg ONCE ONE Administration Ibuprofen 400 mg 04/03/23 23:35 04/03/23 23:57 Ibuprofen 400 Mg Tablet PO 04/03/23 23:36 400 mg ONCE ONE Administration Medical Decision Making Medical Decision Making [facility] Narrative: 32-year-old female with history and clinical presentation, DDX: Viral illness, COVID-19 positive, will rule out influenza/RSV as concomitant infection as, rule out bacterial pneumonia although felt to be less likely. Patient has not taken any analgesics since earlier in the day. Tylenol and ibuprofen offered to the patient. Reviewed all investigation and hematologic indices are grossly within normal limits without leukocytosis/left shift, no anemia or thrombocytopenia. Chemistry and disease to not demonstrate and FRANK and there is no electrolyte derangements. High sensitivity troponin is undetectable and beta hCG is undetectable. Chest x-ray with questionable left perihilar infiltrate, given this finding and patient's presentation will proceed with D-dimer. EKG demonstrates tachycardia but otherwise no acute findings. On review of viral testing it is confirmed the patient is COVID-19 positive, D- dimer is less than 150 Given the finding on the chest Xray, I have recommended that patient get a follow-up chest x-ray in coordination at with discussion with her primary care provider. She is otherwise discharged home with expectant treatment. Chest x-ray findings are of unclear significance as patient is not febrile, she is not hypoxic and labwork is otherwise within normal limits. Differential Diagnosis Differential Diagnoses: The differential diagnosis associated with the presentation includes Please see the discussion Admission/Observation Consideration of admission/observation: Escalation of care including admission/observation considered Please see the discussion above Lab Data [facility] Lab Attestation statement: I reviewed the patient's lab results. Please see the discussion above 04/03/23 21:03 04/03/23 21:03 Labs: Lab Results 04/03/23 04/04/23 Range/Units 21:03 00:14 WBC 8.9 (4.8-10.8) X10*3/uL RBC 4.69 (4.20-5.50) X10*6/uL Hgb 12.8 (12.0-16.0) g/dl Hct 39.3 (37.0-47.0) % MCV 83.8 (80.0-98.0) fL MCH 27.3 (27.0-33.0) pg MCHC 32.6 (31.0-35.0) g/dl RDW 13.7 (11.0-16.0) % Plt Count 321 (160-400) X10*3/uL MPV 10.6 (9.4-12.3) fL Immature Gran % (Auto) 0.2 (0.0-0.4) % Neut % (Auto) 55.3 (45-73) % Lymph % (Auto) 33.4 (20-40) % [place] % (Auto) 8.2 (2-11) % Eos % (Auto) 2.5 (0-4) % Baso % (Auto) 0.4 (0-2) % Lymph # (Auto) 3.0 (1.2-4.9) X10*3/uL [place] # (Auto) 0.7 (0.1-1.2) X10*3/uL Eos # (Auto) 0.2 (0.0-0.4) X10*3/uL Baso # (Auto) 0.0 (0.0-0.2) X10*3/uL Abs Immat Gran (auto) 0.02 (0.00-0.03) X10*3/uL Absolute Neuts (auto) 4.9 (2.0-8.3) x10*3/uL Absolute Nucleated RBC 0.000 (0.0-0.012) X10*3/uL Nucleated RBC % (auto) 0.0 (0.0-0.2) /100WBC D-Dimer High Sensitivty < 150 NG/ML Sodium 138 (135-145) mmol/L Potassium 3.3 (3.3-5.1) mmol/L Chloride 105 (96-108) mmol/L Carbon Dioxide 24 (22-29) mmol/L Anion Gap 12 (12-20) BUN 10 (9-16) mg/dL Creatinine 0.84 (0.5-1.4) mg/dL Estim Creat Clear Calc 107.9 Estimated GFR > 60 Random Glucose 107 (60-115) mg/dL Calcium 9.2 (8.4-10.2) mg/dL Troponin I High Sens < 2.7 (<3.5-17.0) ng/L Beta HCG, Quant < 2 mIU/mL COVID-19 (RICHARD) Positive A (Negative) COVID-19 Clin Com See Note Independent Interpretation I performed an independent interpretation of an: EKG Interpretation: Sinus tachycardia, HR-108, no STEMI, CO/QRS/QTC is within normal limits. Radiology Impression Discussion of test interpretation with radiology: I have reviewed the radiologist's reading. Radiologist Impression: Please see the discussion above External Record Review External record reviewed: Outpatient record, Prior outpatient labs and Prior outpatient radiology Discharge Plan Discharge Clinical Impression: Viral syndrome, Lab test positive for detection of COVID-19 virus, Abnormal chest x-ray Patient Disposition: Home, Self-Care Instructions: COVID-19 (Coronavirus Disease 2019) (ED), Viral Syndrome (ED) Additional Instructions: 1. You will need to isolate for 5 days and then follow all states/Federal/employer guidelines for return to work. 2. Recommend [id number] Tylenol/ibuprofen as needed for headaches, body aches, chest discomfort, temperatures greater than 100.4. Continue to remain well hydrated. 3. You had unusual findings on your chest x-ray that I highly recommend should have a repeat chest x-ray in 3-5 days, this should be done in conjunction with the discussion with your primary care provider. Question left perihilar infiltrate. 4. Please feel free to arrange for a telehealth medicine appointment with your primary care doctor. Return to the ER for any worsening symptoms. Prescriptions: No Action meclizine 25 mg tablet 25 mg PO TID PRN (Reason: dizziness) Qty: 30 0RF hydrochlorothiazide 25 mg tablet 25 mg PO DAILY Qty: 30 0RF amlodipine 2.5 mg tablet 2.5 mg PO DAILY sumatriptan succinate 100 mg tablet PO Zyrtec 10 mg capsule 10 mg PO DAILY PRN ergocalciferol (vitamin D2) 1,250 mcg (50,000 unit) capsule 1,250 mcg PO QWEEK epinephrine 0.3 mg/0.3 mL auto-injector 1 IM DIRECTED prednisone 50 mg tablet 50 mg PO DAILY 5 Days Qty: 5 0RF dexamethasone 6 mg tablet 6 mg PO DAILY 3 Days Qty: 3 0RF azithromycin 500 mg tablet 500 mg PO DAILY 5 Days Qty: 5 0RF losartan 50 mg tablet 50 mg PO QPM omeprazole 20 mg capsule,delayed release(DR/EC) 20 mg PO DAILY ciprofloxacin HCl 250 mg tablet 250 mg PO BID Qty: 14 0RF pantoprazole 40 mg tablet,delayed release (DR/EC) 40 mg PO DAILY Qty: 14 0RF Referrals: Nicholas Cooper MD [Primary Care Provider] -
--- NOTE | 2023-04-03 20:54 | ECG_ITS ---
Test Reason : CHEST PAIN Blood Pressure : / mmHG Vent. Rate : 108 BPM Atrial Rate : 108 BPM P-R Int : 180 ms QRS Dur : 098 ms QT Int : 340 ms P-R-T Axes : 017 011 -04 degrees QTc Int : 455 ms Sinus tachycardia Incomplete right bundle branch block Nonspecific T wave abnormality Abnormal ECG When compared with ECG of 09-SEP-2020 13:58, Vent. rate has increased BY 43 BPM Incomplete right bundle branch block is now Present Nonspecific T wave abnormality, worse in Anterolateral leads Referred By: Venessa Campbell Electronically Signed By:GIORGIO AMADOR
[2023-04-03 21:09] LABS: MANUAL DIFF FLAG NO
[2023-04-03 21:10] LABS: Basophils Percent Auto 0.4 % (0-2); Eosinophils Absolute Auto 0.2 X10*3/uL (0.0-0.4); Eosinophils Percent Auto 2.5 % (0-4); Hematocrit 39.3 % (37.0-47.0); Hemoglobin 12.8 g/dl (12.0-16.0); Imm Gran Abs Auto 0.02 X10*3/uL (0.00-0.03); Imm Gran Pct Auto 0.2 % (0.0-0.4); Lymphocytes Percent Auto 33.4 % (20-40); Mean Corpuscular HGB Conc 32.6 g/dl (31.0-35.0); Mean Corpuscular Hemoglobin 27.3 pg (27.0-33.0); Mean Corpuscular Volume 83.8 fL (80.0-98.0); Mean Platelet Volume 10.6 fL (9.4-12.3); Monocytes Absolute Auto 0.7 X10*3/uL (0.1-1.2); Monocytes Percent Auto 8.2 % (2-11); Neutrophils Absolute Auto 4.9 x10*3/uL (2.0-8.3); Neutrophils Percent Auto 55.3 % (45-73); Platelet Count 321 X10*3/uL (160-400); Red Blood Count 4.69 X10*6/uL (4.20-5.50); Red Cell Distribution Width 13.7 % (11.0-16.0); White Blood Count 8.9 X10*3/uL (4.8-10.8)
[2023-04-03 21:29] LABS: Anion Gap 12 (12-20); Blood Urea Nitrogen 10 mg/dL (9-16); Calcium 9.2 mg/dL (8.4-10.2); Carbon Dioxide 24 mmol/L (22-29); Chloride 105 mmol/L (96-108); Creatinine Clr Calc Pharmacy 107.9; Estimated Glomerular Filt Rate > 60; Glucose Random 107 mg/dL (60-115); Potassium 3.3 mmol/L (3.3-5.1); Sodium 138 mmol/L (135-145)
[2023-04-03 21:34] LABS: HCG Quantitative < 2 mIU/mL; Troponin-I High Sensitivity < 2.7 ng/L (<3.5-17.0)
[2023-04-03] MEDS: Acetaminophen 325 MG TABLET 975 MG PO (23:57)
[2023-04-03] MEDS: Ibuprofen 400 MG TABLET PO (23:57)
[2023-04-04 00:29] LABS: D Dimer High Sensitivity < 150 NG/ML
[2023-04-04 00:34] LABS: COVID-19 Test Positive (Negative); IDNOW Serial# 6674DD1D
[2023-04-04 01:29] VITALS: BP 124/87; PULSE 81; RESP 18; TEMP 37.2; O2SAT 99
== END 2023-04-04 01:32 | disposition home or self-care (01) ==
PROVIDERS: Emergency Medicine; Registered Nurse Emergency; Emergency Provider Student in an Organized Health Care Education/Training Program; PCP Internal Medicine
DX: U07.1 COVID-19 (principal); R07.89 Other chest pain; M54.50 Low back pain, unspecified; H92.03 Otalgia, bilateral; R06.02 Shortness of breath; M79.10 Myalgia, unspecified site; Z79.899 Other long term (current) drug therapy
CPT/HCPCS: 36415; 71046; 80048; 84484; 84702; 85025; 85379; 87635; 93005; 99283; 99284

== ENCOUNTER → 2023-04-03 20:54 | Outpatient (BNV) | payer OTHER, SELFPAY | PROVIDERS: Emergency Provider Student in an Organized Health Care Education/Training Program; PCP Internal Medicine; Visit Provider Internal Medicine | DX: R00.0 Tachycardia, unspecified (principal); R94.31 Abnormal electrocardiogram [ECG] [EKG] | CPT/HCPCS: 93010 ==

== ENCOUNTER 2024-03-08 16:07 | Emergency (ER) | payer OTHER, SELFPAY ==
[2024-03-08 16:42] VITALS: BP 150/102; PULSE 74; RESP 16; TEMP 36.4; O2SAT 99; BMI 50.9
--- NOTE | 2024-03-08 16:43 | ED_ITS ---
HPI - Headache General Chief Complaint: Headache Stated Complaint: Migraine Time Seen by Provider: 03/08/24 18:15 Source: patient Mode of arrival: ambulatory Limitations: no limitations History of Present Illness HPI Narrative: Patient is a 33 year old female presents emergency department for evaluation of intermittent migraine headache, described as a throbbing sensation, reports onset a few days ago, has had some mild relief from sumatriptan but continues to progress. Feels consistent with prior migraines no acute changes. Denies any red flag symptoms including fevers, chills, neck stiffness, malaise, aphasia, weakness, poor coordination, descriptors such as ?the worst headache ever ?or ?thunderclap?, or painful temporal region. Denies dizziness, lightheadedness, vision changes, URI symptoms, chest pain, shortness of breath, numbness or tingling of the extremities. Related Data Home Medications ?Medication ?Instructions ?Recorded ?Confirmed amlodipine 2.5 mg tablet 2.5 mg PO DAILY 09/03/20 09/03/20 cetirizine 10 mg capsule (Zyrtec) 10 mg PO DAILY PRN 09/03/20 09/03/20 epinephrine 0.3 mg/0.3 mL 1 IM DIRECTED allergies 09/03/20 09/03/20 injection, auto-injector ergocalciferol (vitamin D2) 1,250 1,250 mcg PO QWEEK 09/03/20 09/03/20 mcg (50,000 unit) capsule sumatriptan succinate 100 mg tablet mg PO 09/03/20 09/03/20 losartan 50 mg tablet 50 mg PO QPM 08/01/21 omeprazole 20 mg capsule,delayed 20 mg PO DAILY 08/01/21 release Previous Rx's ?Medication ?Instructions ?Recorded hydrochlorothiazide 25 mg tablet 25 mg PO DAILY #30 tabs 06/13/20 prednisone 50 mg tablet 50 mg PO DAILY 5 days #5 tabs 09/03/20 meclizine 25 mg tablet 25 mg PO TID PRN dizziness #30 tabs 09/09/20 azithromycin 500 mg tablet 500 mg PO DAILY 5 days #5 tabs 11/03/20 dexamethasone 6 mg tablet 6 mg PO DAILY 3 days #3 tabs 11/03/20 ciprofloxacin HCl 250 mg tablet 250 mg PO BID #14 tabs 08/01/21 pantoprazole 40 mg tablet,delayed 40 mg PO DAILY #14 tabs 08/01/21 release Allergies Allergy/AdvReac Type Severity Reaction Status Date / Time shellfish derived Allergy Severe THROAT Verified 03/08/24 16:44 [SHELLFISH DERIVED] SWELLING NUMBNESS amoxicillin [From AUGMENTIN] Allergy Intermediate CDIFF Verified 03/08/24 16:44 clavulanic acid Allergy Intermediate CDIFF Verified 03/08/24 16:44 [From AUGMENTIN] Review of Systems Review of Systems: Yes all other systems are reviewed and are negative [facility] Past Medical History Attestation statement: The following information was validated with the patient. Source: old records reviewed Medical History HTN (hypertension) Social History Social History Alcohol intake: never Advance Directives: No Advance Directives Information Provided: No Physical Exam Vital Signs: Vital Signs: Last Vital Signs Temp 98.1 F 03/08/24 18:25 Pulse 68 03/08/24 18:25 Resp 16 03/08/24 18:25 BP 114/65 03/08/24 18:25 Pulse Ox 99 03/08/24 18:25 O2 Del Method Room Air 03/08/24 18:25 BMI result Body Mass Index 50.9 Appearance: Alert.?Oriented to person, place and time. No acute distress.?Normal affect. Head: Normocephalic, atraumatic Eyes: Pupils equal, round and reactive to light. EOMI. No nystagmus. No tenderness to palpation over the temporal region. ENT: External auditory canal normal tympanic membrane pearly jason and intact bilaterally. Oropharynx normal. Neck: Normal inspection.? Neck supple. CVS: Heart sounds normal. Normal heart rate and rhythm.? Pulses normal.?? Respiratory: No respiratory distress.? Lung sounds clear to auscultation bilaterally?? Abdomen: Soft and non-tender. Normoactive bowel sounds. ?? Skin: Skin warm and dry.? Normal skin color.? ?? Extremities: No lower extremity edema.? Neuro: Moves all extremities spontaneously. Sensation intact bilaterally. CN II- XII intact. No focal neuro deficits. Ambulatory with steady gait. Course Reevaluation(s) Reevaluation #1: Patient with a history of recurrent and or similar headache, there is no substantial change to typical headache pattern, there are no red flag symptoms, no focal neurological deficits, no high risk comorbidities. Reports improvement in symptoms after Toradol, Reglan, Benadryl, at this time feel that patient is stable for discharge home Medications Administered Discontinued Medications Generic Name Dose Route Start Last Admin Trade Name Lydia PRN Reason Stop Dose Admin Diphenhydramine HCl 25 mg 03/08/24 18:15 03/08/24 18:53 Diphenhydramine Hcl 50 Mg/Ml Vial IVPUSH 03/08/24 18:16 25 mg ONCE ONE Administration Ketorolac Tromethamine 15 mg 03/08/24 18:15 03/08/24 18:54 Ketorolac Tromethamine 15 Mg/Ml Vial IVPUSH 03/08/24 18:16 15 mg ONCE ONE Administration Metoclopramide HCl 10 mg 03/08/24 18:15 03/08/24 18:54 Metoclopramide Hcl 10 Mg/2 Ml Vial IVPUSH 03/08/24 18:16 10 mg ONCE ONE Administration Medical Decision Making Medical Decision Making [facility] Narrative: Patient is a 33 old female with past medical history of migraine headache, hypertension presenting to emergency department for evaluation of he recurrent migraine over the past 4 days. Overall well-appearing, initially hypertensive she states that she has been compliant with her antihypertensive regimen, states that she typically does notice her blood pressure elevates when she is in pain. Took sumatriptan earlier today without any relief. Differential diagnosis with presentation includes SDH, SAH, ICH, SUPPLY CATALOGUER mass, meningitis, encephalitis, CVA, GCA, migraine, headache. History without concerning exposures, not exacerbated or worsened by exertion, no red flag symptoms, vision changes, under the age of 50, no new no compromising conditions, no focal neurological abnormalities. Defer head CT at this time. Will trial symptomatic relief with IV Toradol Benadryl and Reglan. Due to IV fluid shortage, will have nursing staff push oral fluids Differential Diagnosis Differential Diagnoses: The differential diagnosis associated with the presentation includes (SDH, SAH, ICH, SUPPLY CATALOGUER mass, meningitis, encephalitis, CVA, GCA, migraine, headache) External Record Review External record reviewed: Outpatient record Tests considered The following testing was considered but not selected: See narrative above Prescription Management I considered prescription management with: Pain Medication Discharge Plan Discharge Clinical Impression: Migraine Patient Disposition: Home, Self-Care Instructions: Migraine Headache (ED) Additional Instructions: Continue taking all your medications as prescribed. Return to emergency department any new or worsening symptoms or concerns. Follow-up with your primary care doctor. Prescriptions: No Action meclizine 25 mg tablet 25 mg PO TID PRN (Reason: dizziness) Qty: 30 0RF hydrochlorothiazide 25 mg tablet 25 mg PO DAILY Qty: 30 0RF amlodipine 2.5 mg tablet 2.5 mg PO DAILY sumatriptan succinate 100 mg tablet PO Zyrtec 10 mg capsule 10 mg PO DAILY PRN ergocalciferol (vitamin D2) 1,250 mcg (50,000 unit) capsule 1,250 mcg PO QWEEK epinephrine 0.3 mg/0.3 mL auto-injector 1 IM DIRECTED prednisone 50 mg tablet 50 mg PO DAILY 5 Days Qty: 5 0RF dexamethasone 6 mg tablet 6 mg PO DAILY 3 Days Qty: 3 0RF azithromycin 500 mg tablet 500 mg PO DAILY 5 Days Qty: 5 0RF losartan 50 mg tablet 50 mg PO QPM omeprazole 20 mg capsule,delayed release(DR/EC) 20 mg PO DAILY ciprofloxacin HCl 250 mg tablet 250 mg PO BID Qty: 14 0RF pantoprazole 40 mg tablet,delayed release (DR/EC) 40 mg PO DAILY Qty: 14 0RF Referrals: Tara Forbes MD [Primary Care Provider] - Print Language: Italian
[2024-03-08 18:25] VITALS: BP 114/65; PULSE 68; RESP 16; TEMP 36.7; O2SAT 99
[2024-03-08] MEDS: diphenhydrAMINE HCL 50 MG/ML VIAL 25 MG IVPUSH (18:53)
[2024-03-08] MEDS: Ketorolac Tromethamine 15 MG/ML VIAL IVPUSH (18:54)
[2024-03-08] MEDS: Metoclopramide HCl 10 MG/2 ML VIAL IVPUSH (18:54)
[2024-03-08 20:29] VITALS: BP 131/77; PULSE 72; RESP 16; TEMP 36.7; O2SAT 98
== END 2024-03-08 20:30 | disposition home or self-care (01) ==
PROVIDERS: Emergency Provider Emergency Medicine; PCP Internal Medicine
DX: G43.909 Migraine, unspecified, not intractable, without status migrainosus (principal); I10 Essential (primary) hypertension; Z79.899 Other long term (current) drug therapy
CPT/HCPCS: 96374; 96375; 99284; J1200; J1885; J2765